=== PATIENT | female | born 2000 | race Caucasian/White ===

== ENCOUNTER → 2024-01-25 13:33 | Outpatient (CLI) | payer BC, SELFPAY | PROVIDERS: Family Provider Family Medicine; PCP Family Medicine; Visit Provider Physician Assistant | DX: J02.9 Acute pharyngitis, unspecified (principal) | CPT/HCPCS: 87070 ==

== ENCOUNTER → 2024-01-25 15:25 | Outpatient (CLI) | payer BC, SELFPAY ==
[2024-01-25 16:36] LABS: Monotest Negative (Negative)
== END ==
PROVIDERS: Family Provider Family Medicine; PCP Family Medicine; Referring Provider Physician Assistant; Visit Provider Physician Assistant
DX: J02.9 Acute pharyngitis, unspecified (principal)
CPT/HCPCS: 36415; 86318; 87070